=== PATIENT | male | born 1985 | race Caucasian/White ===

== ENCOUNTER 2023-10-07 06:53 | Outpatient (CLI) | payer SELFPAY | END 2023-10-07 23:59 | disposition left against medical advice (07) | LOC: EMS 06:53 | DX: S60.512A Abrasion of left hand, initial encounter (principal); S60.511A Abrasion of right hand, initial encounter; Y04.0XXA Assault by unarmed brawl or fight, initial encounter; Y92.89 Other specified places as the place of occurrence of the external cause ==